=== PATIENT | male | born 1955 | race Caucasian/White ===

== ENCOUNTER 2020-08-01 09:53 | Outpatient (CLI) | payer MEDICARE ==
[2020-08-01 14:48] LABS: Hemoglobin 12.5 g/dL (14.0-18.0); Mean Corpuscular Hemoglobin 29.8 PG (27.0-33.0); Mean Corpuscular Volume 90.5 fl (80.0-100.0); Mean Platelet Volume 9.5 fl (7.4-10.4); Platelet Count 433 10x3/uL (130-400); RBC Distribution Width 13.1 % (11.5-14.5); Red Blood Cell (RBC) Count 4.19 10x6/uL (4.40-5.80); White Blood Cell (WBC) Count 7.5 10x3/uL (4.5-11.0)
[2020-08-01 14:58] LABS: Anion Gap 15 mmol/L (10-20); BUN (Urea Nitrogen) 26 mg/dL (8.4-25.7); Calc. Creatinine Clearance 0 mL/min (70-130); Carbon Dioxide 25 mmol/L (23-31); Chloride 103 mmol/L (98-107); Glucose 100 mg/dL (80-115); Potassium 4.8 mmol/L (3.5-5.1); Sodium 138 mmol/L (136-145)
[2020-08-01 15:51] LABS: Bilirubin Neg (Negative); Blood, Urine 250 (Negative); Clarity Clear (Clear); Glucose, Urine (Dipstick) Normal (Negative); Ketone, Urine Negative (Negative); Leukocyte 100 (Negative); Nitrite Negative (Negative); Protein, Urine (Dipstick) 30 mg/dl (Neg-Trace); Urobilinogen Normal mg/dL (Less than 2)
[2020-08-01 16:18] LABS: Bacteria/HPF Rare-Few HPF (None Seen); Squamous Epithelial 0-3 HPF (0-3)
[2020-08-02 06:06] LABS: SARS-CoV-2 MS2 Positive; SARS-CoV-2 N Gene Negative; SARS-CoV-2 S Gene Negative; SARS-CoV-2 by NAA Not Detected (NotDetected); SARS-CoV-2 orf1ab Negative
== END 2020-08-01 09:54 | disposition home or self-care (01) ==
LOC: LABBT 09:53
PROVIDERS: ATTEND Internal Medicine
DX: Z01.818 Encounter for other preprocedural examination (principal); Z20.822 Contact with and (suspected) exposure to COVID-19; N32.81 Overactive bladder; N40.1 Benign prostatic hyperplasia with lower urinary tract symptoms; R33.8 Other retention of urine
CPT/HCPCS: 80048; 85027; 87086; 93005; U0003; 81003; 81015; 87635; 93010

== ENCOUNTER 2020-08-04 07:12 | Day surgery (SDC) | payer MEDICARE ==
[2020-08-02 12:05] VITALS: BMI 34.2
[2020-08-04] MEDS ORDERED: Levofloxacin 500 mg/D5W 100 ml Premix Bag ONE (08:08)
[2020-08-04] MEDS ORDERED: Lidocaine 1% PF 5 ML VIAL ONE (09:05)
[2020-08-04] MEDS ORDERED: PROPOFOL 200 MG/20 ML VIAL ONE (09:05)
[2020-08-04] MEDS ORDERED: Fentanyl 100 MCG/2 ML VIAL ONE (09:18)
[2020-08-04] MEDS ORDERED: Ketorolac Tromethamine 30 MG/ML VIAL ONE (10:21)
[2020-08-04] MEDS ORDERED: Oxybutynin 5 MG TAB ONE (10:22)
[2020-08-04] MEDS ORDERED: Labetalol HCl 100 MG/20 ML VIAL ONE (10:22)
[2020-08-04] MEDS ORDERED: Phenazopyridine HCl 100 MG TAB ONE (10:23)
--- NOTE | 2020-08-04 10:25 | OP ---
DATE OF PROCEDURE: 08/04/2020 PREOPERATIVE DIAGNOSIS: Enlarged prostate with lower urinary tract symptoms, urinary retention. POSTOPERATIVE DIAGNOSIS: Enlarged prostate with lower urinary tract symptoms, urinary retention. PROCEDURES PERFORMED: Cystoscopy with UroLift, 9 implants. ANESTHESIA: TIVA. COMPLICATIONS: None. ESTIMATED BLOOD LOSS: Minimal. SPECIMENS: None. DESCRIPTION OF PROCEDURE: After informed consent, the patient was taken to the operating room, transferred to the table under his own power. Anesthesia was established. A time-out was performed showing correct patient, site, and procedure. Preoperative antibiotics were administered. He was prepped and draped in the lithotomy position. The rigid cystoscope was advanced through the urethra noting a normal course and caliber to the urethra into the prostate noting large coapting lateral lobes with no significant bladder neck obstruction. He does have moderate trabeculation throughout, but no mucosal abnormalities. Normal ureters bilaterally. I began by deploying an implant on both sides at the bladder neck. The 3rd and 4th implants were then deployed at the level of the verumontanum, left and right. He had persistent obstruction in the mid prostate, so implants were placed left and right mid prostate. He then required 2 further implants at the bladder neck slightly posterior to the initial two. Finally, he had one area of persistent obstruction at the level of the verumontanum on the right side and the 9th implant was placed here. He then had an excellent channel throughout the prostate. I did note that he had some active bleeding from the mid prostate on the left side and so I elected to place a 20-[place]ues[place] catheter with 15 mL instilled in the balloon. This was connected to leg bag draining light red urine. This will be removed on Friday in my office. He was then awoken from anesthesia, transferred back to his hospital bed, and taken to PACU in stable condition, where he will discharge home upon recovery. Job ID: [id number]
== END 2020-08-04 11:30 | disposition home or self-care (01) ==
LOC: SDC 07:12
PROVIDERS: ATTEND Urology
PROC: 0T7D8DZ Dilation of Urethra with Intraluminal Device, Via Natural or Artificial Opening Endoscopic (ICD-10-PCS; principal; 2020-08-04)
DX: N40.1 Benign prostatic hyperplasia with lower urinary tract symptoms (principal); R33.8 Other retention of urine; I10 Essential (primary) hypertension; E78.5 Hyperlipidemia, unspecified; G47.30 Sleep apnea, unspecified; E66.9 Obesity, unspecified; Z68.34 Body mass index [BMI] 34.0-34.9, adult; Z88.5 Allergy status to narcotic agent
CPT/HCPCS: C1889; C9740; J1885; J1956; J3010